=== PATIENT | male | born 1985 | race Caucasian/White ===

== ENCOUNTER 2021-01-25 12:56 | Emergency (ER) | payer OTHER ==
[~2021-01-25 12:56] MED LIST: CLINDAMYCIN HC300 MG PO
[2021-01-25] MEDS ORDERED: INDOMETHACIN50 MG PO (13:49)
== END 2021-01-25 14:41 | disposition home or self-care (01) ==
LOC: ER1 12:56
DX: M10.9 Gout, unspecified (principal); F15.10 Other stimulant abuse, uncomplicated; F11.10 Opioid abuse, uncomplicated; F17.210 Nicotine dependence, cigarettes, uncomplicated; Z79.899 Other long term (current) drug therapy
CPT/HCPCS: 99283